=== PATIENT | female | born 1965 | race African-American/Black ===

== ENCOUNTER 2023-07-27 23:50 | Emergency (ER) | payer OTHER ==
[~2023-07-27] VITALS: Ht 180.3 cm; Wt 181.4 kg
[2023-07-27 23:50] VITALS: BP 180/90; PULSE 94; RESP 22; TEMP 97.5; O2SAT 98
[2023-07-28 01:23] LABS: BASOPHILS % (AUTO) 0.6 % (0.0-2.0); EOSINOPHILS # (AUTO) 0.3 K/uL (0-0.4); EOSINOPHILS % (AUTO) 3.7 % (0.0-4.0); HEMATOCRIT 41.7 % (36-48); LYMPHOCYTES # (AUTO) 1.7 K/uL (2.5-16.5); LYMPHOCYTES % (AUTO) 21.1 % (20.5-51.1); MEAN CORPUSCULAR HEMOGLOBIN 30 pg (27-31); MEAN CORPUSCULAR HGB CONC 34 g/dL (33-37); MONOCYTES # (AUTO) 0.4 K/uL (0.8-1.0); MONOCYTES % (AUTO) 4.8 % (1.7-9.3); NEUTROPHILS # (AUTO) 5.7 K/uL (1.8-7.7); NEUTROPHILS % (AUTO) 69.8 % (42.2-75.2); PLATELET COUNT (AUTO) 232 K/uL (140-450); RED BLOOD CELL COUNT(AUTO) 4.68 MIL/uL (4.20-5.40); RED CELL DISTRIBUTION WIDTH 14.6 % (11.6-13.7); WHITE BLOOD COUNT (AUTO) 8.2 K/uL (4.8-10.8)
[2023-07-28 01:48] LABS: ALBUMIN 3.3 g/dL (3.4-5.0); ANION GAP 10.4 (8-16); CALCIUM 8.7 mg/dL (8.5-10.1); CARBON DIOXIDE 30.1 mmol/L (21-32); CREATININE 1.1 mg/dL (0.6-1.3); POTASSIUM 3.5 mmol/L (3.5-5.1); TOTAL BILIRUBIN 0.3 mg/dL (0.0-1.0); TOTAL PROTEIN, SERUM 7.9 g/dL (6.4-8.2)
[2023-07-28] MEDS ORDERED: KETOROLAC 60 MG/2 ML VIAL IM ONE (04:05)
[2023-07-28 04:06] VITALS: BP 155/101; PULSE 97; RESP 17
[2023-07-28] MEDS ORDERED: AZIT250T4 PO (04:14)
[2023-07-28 05:53] VITALS: O2SAT 97
== END 2023-07-28 10:00 | disposition home or self-care (01) ==
LOC: MED 23:50
DX: R60.0 Localized edema (principal); J18.9 Pneumonia, unspecified organism; I10 Essential (primary) hypertension
CPT/HCPCS: 36415; 71045; 80053; 83880; 84484; 85025; 96372; 99284; J1885